=== PATIENT | female | born 1960 | race Caucasian/White ===

== ENCOUNTER 2016-07-07 19:54 | Emergency (ER) | payer OTHER ==
[2016-07-07 20:41] LABS: BASO % 0.3 % (0.1-1.2); EOS # 0.2 10_X3_uL (0.0-0.4); GRAN # 5.7 10_X3_uL (1.6-6.1); GRAN % 71.5 % (34.0-71.1); HEMATOCRIT 41.7 % (34-45); HEMOGLOBIN 13.3 g/dL (11.2-15.7); LYMPH # 1.5 10_X3_uL (1.2-3.7); LYMPH % 18.3 % (19.3-51.7); MEAN CORPUSCULAR HEMOGLOBIN 26.4 pg (27.0-33.0); MEAN CORPUSCULAR HGB CONC 31.9 g/dL (32.0-36.0); MEAN CORPUSCULAR VOLUME 82.7 fL (79-95); MEAN PLATELET VOLUME 9.2 fl (7.5-11.5); MONO # 0.6 10_X3_uL (0.2-0.9); MONO % 7.9 % (4.7-12.5); PLATELET COUNT 317 x10_3/uL (182-369); RED BLOOD COUNT 5.04 x10_6/uL (3.9-5.2); RED CELL DISTRIBUTION WIDTH 15.8 % (11.7-14.4)
[2016-07-07 20:58] LABS: ALBUMIN 4.4 gm/dL (3.4-5.0); ALKALINE PHOSPHATASE 129 U/L (50-136); ALT/SGPT 20 U/L (3.5-33.9); AST/SGOT 21 U/L (7.04-26.96); BILIRUBIN,TOTAL 0.56 mg/dL (0.0-1.0); BLOOD UREA NITROGEN 13 mg/dL (7-18); CALCIUM 9.2 mg/dL (8.7-10.7); CARBON DIOXIDE 25 mmol/L (21-32); CREATININE 0.7 mg/dL (0.6-1.3); GLUCOSE,RANDOM 111 mg/dL (70-99); POTASSIUM 4.2 mmol/L (3.5-5.1); SODIUM 142 mmol/L (136-145); TOTAL PROTEIN 7.6 gm/dL (6.4-8.2)
== END 2016-07-07 22:10 | disposition home or self-care (01) ==
LOC: ER 19:54
PROVIDERS: Internal Medicine
DX: R11.2 Nausea with vomiting, unspecified (principal); R19.7 Diarrhea, unspecified; R10.9 Unspecified abdominal pain; F41.9 Anxiety disorder, unspecified; Z79.899 Other long term (current) drug therapy
CPT/HCPCS: 36415; 80053; 85025; 96361; 96374; 99070; 99283-25

== ENCOUNTER 2016-07-18 18:29 | Emergency (ER) | payer OTHER | END 2016-07-18 23:02 | disposition home or self-care (01) | LOC: ER 18:29 | DX: M54.5 Low back pain (principal); M43.17 Spondylolisthesis, lumbosacral region; Z79.899 Other long term (current) drug therapy; Z79.1 Long term (current) use of non-steroidal anti-inflammatories (NSAID) | CPT/HCPCS: 72100; 96372; 99283-25 ==

== ENCOUNTER 2016-10-05 12:24 | Emergency (ER) | payer OTHER | END 2016-10-05 13:40 | disposition home or self-care (01) | LOC: ER 12:24 | DX: S93.401A Sprain of unspecified ligament of right ankle, initial encounter (principal); W19.XXXA Unspecified fall, initial encounter; X50.0XXA Overexertion from strenuous movement or load, initial encounter; Y92.009 Unspecified place in unspecified non-institutional (private) residence as the place of occurrence of the external cause; F17.210 Nicotine dependence, cigarettes, uncomplicated | CPT/HCPCS: 73610; 99070; 99283 ==

== ENCOUNTER 2016-10-17 18:44 | Emergency (ER) | payer OTHER | END 2016-10-18 03:21 | disposition home or self-care (01) | LOC: ER 18:44 | DX: M79.672 Pain in left foot (principal); G89.29 Other chronic pain; J44.9 Chronic obstructive pulmonary disease, unspecified; F17.210 Nicotine dependence, cigarettes, uncomplicated; Z79.899 Other long term (current) drug therapy | CPT/HCPCS: 99282 ==